=== PATIENT | female | born 1995 | race Hispanic/Latino ===

== ENCOUNTER 2024-02-03 08:13 | Inpatient (IN) | payer MEDICAID, SELFPAY ==
[2024-02-03 09:03] LABS: Hematocrit 39.4 % (34.9-44.5); Hemoglobin 13.6 g/dL (12.0-15.5); Mean Corpuscular HGB CONC 34.5 g/dL (32.0-36.0); Mean Corpuscular Hemoglobin 28.4 pg (27.0-33.0); Mean Corpuscular Volume 82.3 fl (81.6-98.3); Mean Platelet Volume 11.4 fl (7.4-10.4); Platelet Count 290 10x3/uL (150-450); RBC Distribution Width 13.9 % (11.5-14.5); Red Blood Cell (RBC) Count 4.79 10x6/uL (3.90-5.03); White Blood Cell (WBC) Count 9.7 10x3/uL (3.5-10.5)
[2024-02-03] MEDS ORDERED: Acetaminophen 500 MG TAB PO PRN (09:18)
[2024-02-03] MEDS ORDERED: Promethazine HCl 25 MG/ML VIAL IM PRN ×2 (09:18→11:57)
[2024-02-03] MEDS ORDERED: Ondansetron PF 4 MG/2 ML Vial IVP PRN ×2 (09:18→11:57)
[2024-02-03] MEDS ORDERED: HYDROcodone/Acetaminophen 5/325 mg Tablet PO PRN ×2 (09:18→11:57)
[2024-02-03] MEDS ORDERED: hydrALAZINE 20 MG/ML VIAL SLOW IVP PRN ×2 (09:18→11:57)
[2024-02-03] MEDS ORDERED: Lidocaine 1% (PF) 30 ML VIAL SC PRN (09:18)
[2024-02-03] MEDS ORDERED: Methylergonovine 0.2 MG/ML VIAL IM PRN (09:18)
[2024-02-03] MEDS ORDERED: Ibuprofen 800 MG TAB PO PRN (09:18)
[2024-02-03] MEDS ORDERED: Misoprostol 200 MCG TAB PR PRN (09:18)
[2024-02-03] MEDS ORDERED: Oxytocin 30 units/NS 500 ML 500 ML IV SCH (09:30)
[2024-02-03] MEDS ORDERED: Lactated Ringer's 1,000 ML IV SCH (09:30)
[2024-02-03 09:48] VITALS: BMI 28.3
[2024-02-03 10:01] LABS: Syphilis Antibody Nonreactive (Nonreactive); Syphilis Antibody Index 0.04 S/CO (<1.00 Non-Reactive)
[2024-02-03 10:02] LABS: HBSAg Index 0.21 S/CO (0-0.99); Hep B Surf Ag - L&D Non-Reactive S/CO (NonReactive)
[2024-02-03] MEDS ORDERED: Benzocaine-Menthol 82.5 ML CAN TOP PRN (11:57)
[2024-02-03] MEDS ORDERED: diphenhydrAMINE 25 MG CAP PO PRN (11:57)
[2024-02-03] MEDS ORDERED: Milk Of Magnesia 30 ML UDCUP PO PRN (11:57)
[2024-02-03] MEDS ORDERED: Lanolin Ointment 7 GM TUBE TOP PRN (11:57)
[2024-02-03] MEDS ORDERED: Preparation H Ointment 28 GM TUBE PR PRN (11:57)
[2024-02-03] MEDS ORDERED: Bisacodyl 10 MG SUPP PR PRN (11:57)
[2024-02-03] MEDS: Oxytocin 30 units/NS 500 ML 500 ML ONE (12:44)
[2024-02-03] MEDS: Boostrix 0.5 ML (Tdap) VIAL (>/=7 yrs of age) IM ONE (12:45)
[2024-02-03] MEDS: Ibuprofen 800 MG TAB PO SCH (14:48)
[2024-02-03] MEDS: Ferrous Sulfate 325 MG TAB PO SCH (16:41)
[2024-02-03] MEDS: Docusate 100 MG CAP PO SCH (20:46)
[2024-02-04] MEDS: HYDROcodone/Acetaminophen 5/325 mg Tablet PO PRN (10:53)
[2024-02-04] MEDS: Prenatal Vitamin 1 TAB PO SCH (10:53)
[2024-02-04 11:42] VITALS: BP 109/56; TEMP 98
== END 2024-02-04 18:15 | disposition home or self-care (01) | DRG 807 ==
LOC: CSHLD/OP 08:13 → CSHLD 09:05 → CSHPED 12:15
PROVIDERS: ADMIT Student in an Organized Health Care Education/Training Program; ATTEND Student in an Organized Health Care Education/Training Program
PROC: 10E0XZZ Delivery of Products of Conception, External Approach (ICD-10-PCS; principal; 2024-02-03)
DX: O69.81X0 Labor and delivery complicated by cord around neck, without compression, not applicable or unspecified (principal); Z37.0 Single live birth; Z3A.40 40 weeks gestation of pregnancy; O48.0 Post-term pregnancy
CPT/HCPCS: 85027; 86780; 86850; 86900; 86901; 87340; 99285; J2590